=== PATIENT | male | born 1950 | race Caucasian/White ===

== ENCOUNTER 2018-08-22 12:37 | Inpatient (IN) ==
[2018-08-22] MEDS ORDERED: CeFAZolin Syr 2,000MG/20 ML 2,000 MG/20 ML SYRINGE IVPB ONE (13:04)
--- NOTE | 2018-08-22 13:14 | History & Physical Report ---
Date of Encounter: 08/22/18 Time of Encounter: 13:14 24 Hour HP Update - Instructions Instructions: If the History and Physical is less than 30 days old and was completed prior to A.M. admission and or procedure and has NOT been updated on calendar day of procedure please complete this update prior to performing procedure. - Update Patient reports changes in Medical Condition: No Changes in examination, assessment, or condition: No Changes in Medication: No Preop tests/diagnostics Reviewed: Yes Surgery Remains Indicated: Yes Consent for Planned Operative Procedure(s) Verified: Yes - Pre-Operative Checklist Preoperative Checklist Indicated: No Prophylactic Antibiotic Ordered: Yes Is VTE Prophylaxis Indicated?: Yes
[2018-08-22] MEDS ORDERED: Ringers Solution, Lactated 1,000 ML IVC SCH ×2 (13:15→17:43)
[2018-08-22] MEDS ORDERED: *HR* Rocuronium Bromide 50 MG/5 ML VIAL ONE (14:18)
[2018-08-22] MEDS ORDERED: Lidocaine -MPF 2% 2 ML VIAL ONE (14:18)
[2018-08-22] MEDS ORDERED: *HR* Propofol 200 MG/20 ML VIAL IVP ONE (14:18)
[2018-08-22] MEDS ORDERED: *HR* Succinylcholine 200 MG/10 ML VIAL IVP ONE (14:18)
[2018-08-22] MEDS ORDERED: *HR* FentaNYL (PF) 100 MCG/2 ML VIAL ONE ×2 (14:18→16:02)
[2018-08-22] MEDS ORDERED: Ondansetron 4 MG/2 ML VIAL ONE (14:18)
[2018-08-22] MEDS ORDERED: Dexamethasone 4 MG/ML VIAL ONE (14:18)
[2018-08-22] MEDS ORDERED: Pregabalin 75 MG CAPSULE PO ONE (14:25)
[2018-08-22] MEDS ORDERED: *HR* Methadone 10 MG TABLET PO ONE ×2 (14:25→14:42)
[2018-08-22] MEDS ORDERED: Celecoxib 100 MG CAPSULE PO ONE ×2 (14:25→14:41)
[2018-08-22] MEDS ORDERED: Acetaminophen IV 1,000 MG/100 ML INFUS..BTL IVPB ONE (14:25)
--- NOTE | 2018-08-22 14:29 | Anesthesia Evaluation PreOp ---
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 Other Medical History: Other (OBESITY, BMI 32) Anesthesia History: No Prior Anesthetic Complications, Past Anesthesia Alcohol Use: occasionally Drug use: none Medications and Allergies Aspirin [Lo-Dose Aspirin EC] 81 mg PO DAILY 06/09/18 [History] Benazepril HCl [Lotensin] 20 mg PO QAM 06/09/18 [History] amLODIPine [Norvasc] 5 mg PO DAILY 06/09/18 [History] Allergy/AdvReac Type Severity Reaction Status Date / Time Oxycodone [From Percocet] AdvReac See Verified 08/22/18 13:23 Comments Izvynnb-Kld-Ihs Reductase AdvReac Muscle Pain Verified 08/22/18 13:23 Inhibitor [Statins] - Meds/Allergy Pre-op Review Medications Reviewed: Yes Allergies Reviewed: Yes Beta Blockers on Current Med List: No Anesthesia Results - Labs Laboratory Last Values WBC 7.2 K/mcL (4.3-11.1) 08/15/18 08:58 RBC 5.17 M/mcL (4.19-5.50) 08/15/18 08:58 Hgb 15.1 g/dL (12.9-16.9) 08/15/18 08:58 Hct 43.1 % (37.5-50.1) 08/15/18 08:58 MCV 83.4 fL (83.0-100.0) 08/15/18 08:58 MCH 29.2 pg (28.0-33.3) 08/15/18 08:58 MCHC 35.0 g/dL (31.6-35.5) 08/15/18 08:58 RDW 12.8 % (11.5-14.5) 08/15/18 08:58 Plt Count 214 K/mcL (140-400) 08/15/18 08:58 MPV 10.2 fL (9.4-12.4) 08/15/18 08:58 Immature Gran % 0.7 % (0-4) 08/15/18 08:58 Seg Neutrophils % 71.4 % 08/15/18 08:58 Lymphocytes % 17.6 % 08/15/18 08:58 Monocytes % 7.5 % 08/15/18 08:58 Eosinophils % 2.2 % 08/15/18 08:58 Basophils % 0.6 % 08/15/18 08:58 Neutrophils # 5.2 K/mcL (1.6-8.9) 08/15/18 08:58 Lymphocytes # 1.3 K/mcL (0.6-4.6) 08/15/18 08:58 Monocytes # 0.5 K/mcL (0.0-1.3) 08/15/18 08:58 Eosinophils # 0.2 K/mcL (0.0-0.6) 08/15/18 08:58 Basophils # 0.0 K/mcL (0.0-0.2) 08/15/18 08:58 PT 11.8 Seconds (9.4-12.1) 08/15/18 08:58 INR 1.0 08/15/18 08:58 APTT 45.5 Seconds (26.0-36.0) H 08/15/18 08:58 Sodium 137 mEq/L (136-145) 08/15/18 08:58 Potassium 4.1 mEq/L (3.5-5.1) 08/15/18 08:58 Chloride 108 mEq/L (98-107) H 08/15/18 08:58 Carbon Dioxide 21 mEq/L (23-29) L 08/15/18 08:58 BUN 14 mg/dL (8-23) 08/15/18 08:58 Creatinine 0.82 mg/dL (0.70-1.30) 08/15/18 08:58 Est GFR ( Amer) > 60 (> 60) 08/15/18 08:58 Est GFR (Non-Af Amer) > 60 (> 60) 08/15/18 08:58 BUN/Creatinine Ratio 17 (6-26) 08/15/18 08:58 Anesthesia Exam O2 Sat Height 1.7 m Height 1.7 m Height 1.7 m Weight 92.986 kg Weight 92.986 kg Weight 92.986 kg O2 Sat by Pulse Oximetry 93 Vital Signs Temp Pulse Resp BP Pulse Ox 97.9 F 76 18 104/64 93 08/22/18 12:52 08/22/18 12:52 08/22/18 12:52 08/22/18 12:52 08/22/18 12:52 NPO (# of Hours): 8 - HEENT Mallampati: II Teeth: Normal Oral Opening: Greater than 3 - Cardiac Rhythm: Regular - Pulmonary Breath Sounds: bilateral Clear Respiratory Effort: Symmetrical Anesthesia Assess/Plan ASA Score: 2 Anesthetic Plan: General Monitoring Plan: Standard Monitors Recovery Plan: PACU Anes Supervising Prov Stmt: Patient informed and consented. Risks, benefits, and alternatives discussed. Patient wishes to proceed.
[2018-08-22] MEDS ORDERED: Ethanol\\Acetic Acid\\Na Ace\\Ben 1,000 ML IRRIG.SOLN IR ONE (14:38)
[2018-08-22] MEDS ORDERED: Acetaminophen IV 1,000 MG/100 ML INFUS..BTL ONE ×2 (14:41→14:42)
[2018-08-22] MEDS ORDERED: Pregabalin 75 MG CAPSULE ONE (14:42)
[2018-08-22] MEDS ORDERED: *HR* Midazolam HCl 2 MG/2 ML VIAL ONE (14:47)
[2018-08-22] MEDS ORDERED: *HR* HYDROmorphone (PF) 1 MG/ML SYRINGE IVP PRN (14:49)
[2018-08-22] MEDS ORDERED: *HR* HYDROmorphone 2 MG TABLET PO PRN (14:49)
[2018-08-22] MEDS ORDERED: Albuterol 2.5 MG/3 ML NEBULIZER IH ONE (14:49)
[2018-08-22] MEDS ORDERED: traMADol 50 MG TABLET PO PRN (14:49)
[2018-08-22] MEDS ORDERED: *HR* Promethazine 25 MG/ML VIAL IVP PRN (14:49)
[2018-08-22] MEDS ORDERED: *HR* Labetalol 20 MG/4 ML SYRINGE IVP PRN (14:49)
[2018-08-22] MEDS ORDERED: *HR* PHENYLEPHRINE 1,000 MCG/10 ML SYRINGE IVP ONE (16:07)
[2018-08-22] MEDS ORDERED: EPHEDrine 50 MG/ML VIAL ONE (16:36)
--- NOTE | 2018-08-22 17:00 | Orthopedic Operative Note ---
Date of procedure: 08/22/18 Pre-op diagnosis: Right hip arthritis Post-op diagnosis: same Procedure: Procedure: Right Total Hip Replacment robotic-assisted Estimated blood loss: 200 cc Hardware: Metal and polyethylene replacement. Anam DM Cup: 60 cup Femoral size 10 stem Head:8 head with Arcelia Procedural Notes: Grade 4 arthritic changes femoral head acetabular socket, procedure performed with robotic assistance. Operative leg 2 mm short as compared to preoperative CT Operative procedure: The patient was brought to the operating room and placed on the operating room table. After general anesthesia was administered the patient was placed in the lateral decubitus position with the operative leg up. All pressure points were padded appropriately and the head was stabilized in the neutral position. The operative extremity was prepped and draped in the sterile surgical fashion patient received IV antibiotic prior to skin incision. 3 Steinmann pins were placed in the iliac crest 3 cm proximal to the anterior superior iliac spine this was for the robotic-assisted sensor. This was done through a small 2 cm incision. A standard posterior approach is made to the operative hip, the incision was made through the skin and subcutaneous tissue hemostasis was obtained with Bovie cautery. Using careful sharp dissection the fascia was identified and incised exposing the external rotators. The greater trochanter was marked, and length was measured at this time utilizing robotic assistance. The external rotators were released off the greater trochanter and tagged with #2 FiberWire suture. The capsule was T'd open and the hip was brought into internal rotation. Patient noted to have grade 4 arthritic changes femoral head. The femoral neck cut was made at the appropriate level roughly 15 mm proximal to the lesser trochanter on preoperative templating. An anterior capsulotomy was performed for the anterior retractor. Soft tissues removed from the acetabulum. Patient noted to have grade 4 arthritic changes acetabulum. The acetabulum reference point was confirmed. The acetabulum was then mapped with robotic assistance. Based on the preoperative plan the acetabulum was reamed in one step with a 59 reamer. The 60 acetabulum was impacted with robotic assistance and 54 degrees of abduction and 15 degrees of anteversion. The hip was brought back in to internal rotation and prepared with the box cut ter followed by the canal finder followed by the reaming process to a size 7/8 broaching process in 20 degrees anteversion. It was broached up to the appropriate size 10 Trial reduction revealed leg lengths close to normal. The femoral implant was impacted in place in 20 degrees of anteversion. Trial reduction found the hip to be stable with 8 head and Arcelia. The trials were removed and the real implants were impacted in place. The hip was reduced, patient had robotic confirmed leg length of 12 mm longer than the contralateral side. The hip had excellent stability with forward flexion to 90 degrees adduction of 30 degrees and internal rotation of 60 degrees. The hip had no shuck. The hip sat with an antibacterial solution. It was irrigated out with 2 L of pulse irrigation. The Steinmann pins were removed. The deep tissue was irrigated and closed deep with #1 PDS suture superficially with 0 PDS suture and skin was closed with Dermabond and zip tie. The patient was placed in a sterile dressing and abduction pillow. The patient was extubated and transferred to the recovery room in stable condition. Anesthesia: CELSO Surgeon: Yoni Tapia Was there an permit review assistant present: No Estimated blood loss (cc): 200 Condition: stable Disposition: PACU
--- NOTE | 2018-08-22 17:40 | Anesthesia Evaluation Post Op ---
Date of Encounter: 08/22/18 Time of Encounter: 17:39 - Discharge PostOp Status: Transfer Patient to floor (Patient's vital signs have been reviewed. Patient is stable postoperatively and has adequately recovered from anesthesia. Patient is determined to have stable airway patency and respiratory function including respiratory rate and oxygen saturation. Patient has a stable heart rate, blood pressure and adequate hydration. Patients mental status is acceptable. Patients temperature is appropriate. Pain and nausea are adequately controlled.)
[2018-08-22] MEDS ORDERED: Naloxone 0.4 MG/ML INJ IVP PRN (17:43)
[2018-08-22] MEDS ORDERED: Ondansetron 4 MG/2 ML VIAL IVP PRN (17:43)
[2018-08-22] MEDS ORDERED: *HR* HYDROcodone/Acet 10/325 mg TABLET PO PRN (17:43)
[2018-08-22] MEDS ORDERED: *HR* HYDROcodone/Acet 5/325 mg TABLET PO PRN (17:43)
[2018-08-22] MEDS ORDERED: Sennosides 8.6 MG TABLET PO PRN (17:43)
[2018-08-22] MEDS ORDERED: MOM Conc 10 ML UD.LIQ PO PRN (17:43)
[2018-08-22 17:45] LABS: Hematocrit 43.8 % (37.5-50.1); Hemoglobin 14.8 g/dL (12.9-16.9)
[2018-08-22] MEDS: Ascorbic Acid 500 MG TABLET PO SCH (17:49)
[2018-08-22] MEDS ORDERED: *HR* Enoxaparin 30 MG/0.3 ML SYRINGE SQ SCH (18:00)
[2018-08-22] MEDS: *HR* Enoxaparin 30 MG/0.3 ML SYRINGE SQ SCH (18:36)
[2018-08-22] MEDS ORDERED: Temazepam 15 MG CAPSULE PO PRN (21:00)
[2018-08-22] MEDS: traMADol 50 MG TABLET PO PRN (21:45)
[2018-08-23 05:28] LABS: Hematocrit 33.5 % (37.5-50.1); Hemoglobin 11.6 g/dL (12.9-16.9)
[2018-08-23] MEDS: *HR* Enoxaparin 30 MG/0.3 ML SYRINGE SQ SCH (05:40)
[2018-08-23 05:44] LABS: BUN/Creatinine Ratio 24 (6-26); Blood Urea Nitrogen 23 mg/dL (8-23); Carbon Dioxide 23 mEq/L (23-29); Chloride 107 mEq/L (98-107); Glucose 176 mg/dL (70-105); Osmolality,Calculated 290 (280-300); Potassium 4.5 mEq/L (3.5-5.1); Sodium 136 mEq/L (136-145); eGFR For Non-African Americans > 60 (> 60)
--- NOTE | 2018-08-23 06:39 | Orthopedics Progress Note ---
Date of Encounter: 08/23/18 Time of Encounter: 06:39 Subjective Interval history: Patient was seen this morning doing well without complaints. Afebrile vital signs stable. Operative extremity: Neurovascularly intact Dressing clean dry and intact Calves nontender Assessment and plan: Continue with postoperative care Hematocrit 33 plan for discharge today Objective Vital signs: Vital Signs Temp Pulse Resp BP Pulse Ox 08/23/18 04:35 97.9 F 66 17 118/72 97 08/22/18 23:30 97.8 F 75 18 120/73 93 08/22/18 20:45 97.7 F 82 16 135/82 98 08/22/18 19:45 97.7 F 86 16 122/73 100 08/22/18 18:15 97.6 F 74 17 159/86 97 08/22/18 17:45 97.5 F L 67 17 138/83 97 08/22/18 17:35 98.5 F 70 16 124/85 97 08/22/18 17:25 98.5 F 74 18 131/79 96 08/22/18 17:15 98.5 F 84 18 130/82 100 08/22/18 17:05 98.5 F 69 18 122/76 100 08/22/18 12:52 97.9 F 76 18 104/64 93 Intake and Output 08/22/18 08/22/18 08/23/18 15:59 23:59 07:59 Intake Total 720 / 720 100 / 100 Output Total 550 / 550 Balance 170 / 170 100 / 100 Intake: IV Fluids 100 / 100 Ancef 2,000 MG In 0.9 % Sodium 100 / 100 Chloride 100 ML @ 200 mls/hr IVPB Q8H [facility] Rx#:[id number] Oral 720 / 720 Output: Urine 350 / 350 Estimated Blood Loss 200 / 200 Other: Meal Dinner Percent of Meal Consumed 90% Weight 92.986 kg - Labs CBC & BMP: 08/23/18 04:35 08/23/18 04:35 Labs: Abnormal lab results Hgb 11.6 g/dL (12.9-16.9) L D 08/23/18 04:35 Hct 33.5 % (37.5-50.1) L 08/23/18 04:35 Glucose 176 mg/dL (70-105) H 08/23/18 04:35 - VTE Documentation of Mechanical Device: Venous foot pump, device Consult Discharge Plan - Plan Referrals: Kye Raines [Primary Care Provider] -
--- NOTE | 2018-08-23 06:42 | Discharge Summary ---
<Yoni Tapia - Last Filed: 08/23/18 06:39> Orders not resulted at time of discharge: Pending orders 08/22/18 13:14 XR hip complete RT [XR] Routine 08/24/18 04:00 Basic Metabolic Panel AM 0400 Hemoglobin and Hematocrit [HEME] AM 0400 - Discharge Diagnosis (1) Obesity (BMI 30.0-34.9) Priority: Secondary Status: Chronic (2) Arthritis of right hip Priority: Primary Status: Chronic (3) Status post total hip replacement, right Priority: Primary Status: Acute (4) Hyperlipidemia Priority: Secondary Status: Chronic Qualifiers: Hyperlipidemia type: unspecified Qualified Code(s): E78.5 - Hyperlipidemia, unspecified (5) Hypertension Priority: Secondary Status: Chronic Qualifiers: Hypertension type: unspecified Qualified Code(s): I10 - Essential (primary) hypertension - Hospital Course Hospital course: Mr. Perez is a 68 year old male - Time Spent with Patient Total time spent providing and/or coordinating discharge services: - Discharge Medications Prescriptions: Aspirin Enteric Coated [Aspirin EC] 325 mg PO BID #20 tablet. HYDROcodone/Acet 5/325 mg [Mcpherson 5-325 mg] 1 tab PO Q6H PRN 5 Days #20 tab PRN Reason: Pain Home Medications: Benazepril HCl [Lotensin] 20 mg PO QAM 06/09/18 [History] amLODIPine [Norvasc] 5 mg PO DAILY 06/09/18 [History] Aspirin Enteric Coated [Aspirin EC] 325 mg PO BID #20 tablet. 08/23/18 [Rx] HYDROcodone/Acet 5/325 mg [Mcpherson 5-325 mg] 1 tab PO Q6H PRN 5 Days #20 tab 08/23/18 [Rx] Allergies/Adverse Reactions: Allergy/AdvReac Type Severity Reaction Status Date / Time Oxycodone [From Percocet] AdvReac See Verified 08/22/18 13:23 Comments Mzxxfcs-Tiz-Mol Reductase AdvReac Muscle Pain Verified 08/22/18 13:23 Inhibitor [Statins] Date of admission: 08/22/18 17:42 Primary care physician: Kye Raines Consults: 08/22/18 17:43 Consult to Nurse Navigator [CONS] Routine Comment: ortho navigator Consult to Occupational Therapy [CONS] Routine Comment: Evaluate, develop and implement POC Reason for Consult: total hip replacement Does patient have active BEDREST order?: No Is patient medically & hemodynamically stable?: Yes Consult to Physical Therapy [CONS] Routine Comment: Evaluate, develop and implement POC Reason for Consult: total hip replacement Does patient have active BEDREST order?: No Is patient medically & hemodynamically stable?: Yes Consult to Warehouse Helper [CONS] Routine Reason for SW Consult: post op joint replacement RT Post Op Consult [CONS] Routine - VTE Documentation of Mechanical Device: Venous foot pump, device Labs on day of discharge: Labs from last 24 hours 08/23/18 08/23/18 08/22/18 04:35 04:35 17:22 Hgb 11.6 L D 14.8 Hct 33.5 L 43.8 Sodium 136 Potassium 4.5 Chloride 107 Carbon Dioxide 23 BUN 23 Creatinine 0.97 Est GFR ( Amer) > 60 Est GFR (Non-Af Amer) > 60 BUN/Creatinine Ratio 24 Glucose 176 H Calculated Osmolality 290 Calcium 9.0 - Patient Status Disposition: Home, Self-Care Condition: Good - Discharge Instructions Instructions: Aspirin/Codeine (By mouth), Hydrocodone/Acetaminophen (By mouth) Follow Up With: Kye Raines [Primary Care Provider] - Additional Instructions: Discharge Instructions: Total Hip Replacement Please call [facility] ([phone]), your Primary Care Physician, or report to the Emergency Room if you have any of the following symptoms: Nausea, vomiting, fever greater that 101.5, swelling, chest pain, shortness of breath, increased pain/redness/drainage/odor for your incision site, numbness/tingling, or any other concerning symptoms. ACTIVITY:Weight-bearing as tolerated for 8 weeks with hip dislocation precautions that physical therapy taught you. You may progress as tolerated under the guidance of your physical therapist. You do not need to sleep with a pillow between your legs. You can also seep on the operative side or on your stomach. Incentive Spirometer 10 times an hour. MEDICATIONS: Upon discharge resume your home medications. Take all the medications as prescribed. Take a stool softener if taking narcotic pain medications. Stool softeners are only effective if you drink enough fluids. Drink 6-8 glass of water or fluids a day, unless this is not allowed for another health problem. Despite using stool softeners, if you haven't had a bowel movement in 3 days, please switch to a gentle laxative. Gentle laxatives are sold over the counter. You should have a bowel movement within 24 hours, if not call the office. You will be discharged from the hospital with a prescription for pain medication. You are encouraged to decrease the use of narcotic pain medication as tolerated. Should you require a refill, please call the office. [facility] prescribes narcotic pain medication for only 4-6 weeks after surgery. If you require pain medication beyond this time period, you may be referred to your Primary Care Physician or to the Pain Clinic for further evaluation. Plan ahead for refills on pain medication as many narcotics either need to be picked up at the office or mailed. It is best to call 48-72 hours in advance of needing a prescription refill so you don't run out of medication. To help control the post-operative pain, you may take NSAIDs (Aleve,Advil, Motrin, ibuprofen, naprosyn) or Tylenol as prescribed on the bottle in addition to the pain medication. ANTICOAGULATION (blood thinners): Continue your Aspirin, Lovenox or Coumadin as prescribed to help prevent a blood clot in the leg or in the lungs. As long as your incision remains dry and you tolerate the NSAIDs (Aleve, Advil, Motrin, Ibuprofen, Naprosyn), it is OK to use the NSAIDS while you are taking your anticoagulation medication. Should your incision start to drain, stop the NSAID and contact our office. Common symptoms of blood clot in the legs include: localized pain, swelling, calf tenderness, redness or discoloration of the skin. Blood clot in the lung symptoms include: shortness of breath, rapid pulse, sweating, and chest pain that worsens with deep breathing, coughing up blood, lightheadedness, feelings of anxiety. If you experience any of these symptoms notify your physician immediately, go to the emergency room, or if having trouble breathing, call 911. WOUND CARE: Leave the dressing on for 7 to 10days. You may change the dressing if it is saturated greater than 50%. Do not get the dressing wet at anytime. Wash your hands with antibacterial soap, rinse and dry prior to any wound care. If you have amber the visiting nurse or rehab facility can remove the stapes 10-14 days after surgery and place steri-strips across the wound. Leave the steri-strips in place until they fall off on their own. You may let water from the shower run on top of the steri-strips. If you do not have a visiting nurse or rehab facility, you will need to return to the office at 10-14 days for the amber to be removed. If you have itching or redness around the dressing call the office. FOLLOW-UP: Please follow up with your surgeon in the orthopedic clinic in 6 weeks from the day of surgery. If you have amber that need to be removed, you will need to come back to the office in 10-14 days from the day of surgery. <Jesika Xiong - Last Filed: 08/23/18 16:08> Orders not resulted at time of discharge: Pending orders 08/22/18 16:44 Surgical Pathology [PTH] Routine Date of Encounter: 08/23/18 Time of Encounter: 12:30 - Discharge Diagnosis (1) Status post total hip replacement, right Priority: Primary Status: Acute (2) Arthritis of right hip Priority: Primary Status: Chronic (3) Hyperlipidemia Priority: Secondary Status: Chronic Qualifiers: Hyperlipidemia type: unspecified Qualified Code(s): E78.5 - Hyperlipidemia, unspecified (4) Hypertension Priority: Secondary Status: Chronic Qualifiers: Hypertension type: unspecified Qualified Code(s): I10 - Essential (primary) hypertension (5) Obesity (BMI 30.0-34.9) Priority: Secondary Status: Chronic - Hospital Course Hospital course: Mr. Perez is a 68 year old male status post right THR robotic 08/22/18 with history of HTN, HLD and obesity. He participated in therapy and had uneventful hospital course. He was seen by Dr. Tapia this morning and discharged home in stable condition. I did not see patient during PCR as he was already gone. Labs reviewed, H/H stable. Afebrile and VS stable at discharge. Plan: DC home to outpatient therapy. - Time Spent with Patient Total time spent providing and/or coordinating discharge services: Date of admission: 08/22/18 17:42 Primary care physician: Kye Raines Consults: 08/22/18 17:43 Consult to Nurse Navigator [CONS] Routine Comment: ortho navigator Consult to Occupational Therapy [CONS] Routine Comment: Evaluate, develop and implement POC Reason for Consult: total hip replacement Does patient have active BEDREST order?: No Is patient medically & hemodynamically stable?: Yes Consult to Physical Therapy [CONS] Routine Comment: Evaluate, develop and implement POC Reason for Consult: total hip replacement Does patient have active BEDREST order?: No Is patient medically & hemodynamically stable?: Yes Consult to Warehouse Helper [CONS] Routine Reason for SW Consult: post op joint replacement RT Post Op Consult [CONS] Routine Discharging clinician: Yoni Tapia Anticipated date of discharge: 08/23/18 Labs on day of discharge: Labs from last 24 hours 08/23/18 08/23/18 08/22/18 04:35 04:35 17:22 Hgb 11.6 L D 14.8 Hct 33.5 L 43.8 Sodium 136 Potassium 4.5 Chloride 107 Carbon Dioxide 23 BUN 23 Creatinine 0.97 Est GFR ( Amer) > 60 Est GFR (Non-Af Amer) > 60 BUN/Creatinine Ratio 24 Glucose 176 H Calculated Osmolality 290 Calcium 9.0 - Impressions ITS Impressions Hip X-Ray 08/22/18 13:14 IMPRESSION: Expected postsurgical changes from a right hip total arthroplasty. D/ / Yoni Buckley MD / Yoni Buckley MD Interpreting Provider: Yoni Buckley MD - Patient Status Overall status at discharge: patient is back to baseline - Diet and Activity Activity: as per physical therapy Diet: advance to your usual diet
[2018-08-23] MEDS: Ascorbic Acid 500 MG TABLET PO SCH (08:12)
[2018-08-23] MEDS ORDERED: Lisinopril 20 MG TABLET PO SCH (09:00)
[2018-08-23] MEDS ORDERED: amLODIPine 5 MG TABLET PO SCH (09:00)
[2018-08-23] MEDS ORDERED: Aspirin Enteric Coated 81 MG Tablet PO SCH (09:00)
[2018-08-23] MEDS ORDERED: Multivit/Ca/Min/Fe/FA 1 TAB TABLET PO SCH (09:00)
[2018-08-23 11:07] VITALS: BP 109/64
[2018-08-23] MEDS: traMADol 50 MG TABLET PO PRN (12:10)
== END 2018-08-23 12:55 | disposition home or self-care (01) | DRG 470 ==
LOC: SAMDAY 12:37 → 3NENU 17:42
PROVIDERS: ADMIT Orthopaedic Surgery; ATTEND Orthopaedic Surgery